=== PATIENT | female | born 1995 | race Two or more races ===

== ENCOUNTER 2021-03-08 05:44 | Inpatient (IN) | payer OTHER ==
[~2021-03-08] VITALS: Ht 160 cm; Wt 131.8 kg
[2021-03-08] MEDS ORDERED: METOCLOPRAMIDE 5 MG/ML, 2ML IV ONE (06:00)
[2021-03-08] MEDS ORDERED: LACTATED RINGERS 1,000 ML IVBOLUS ONE (06:00)
[2021-03-08] MEDS ORDERED: SODIUM CITRATE/CITRIC ACID 30 ML UDC PO ONE (06:00)
[2021-03-08] MEDS ORDERED: LACTATED RINGERS 1,000 ML IV SCH (06:00)
[2021-03-08] MEDS ORDERED: NEWBORN KIT ONE (06:05)
[2021-03-08] MEDS ORDERED: SODIUM CITRATE/CITRIC ACID 15 ML UDC ONE (06:06)
[2021-03-08] MEDS ORDERED: OXYTOCIN 30U/ 0.9% NaCL 500ML 500 ML ONE (06:06)
[2021-03-08 06:09] VITALS: BP 126/70
[2021-03-08] MEDS ORDERED: ASPI-963 PO (06:16)
[2021-03-08] MEDS ORDERED: PREN1TAB62 PO (06:16)
[2021-03-08] MEDS ORDERED: IRON1TAB60 PO (06:17)
[2021-03-08 06:23] LABS: BASOPHILS % (AUTO) 1 % (0-1); EOSINOPHILS % (AUTO) 1 % (1-7); LYMPHOCYTES % (AUTO) 18 % (22-44); MD NO; MEAN CORPUSCULAR HEMOGLOBIN 26.2 pg (27.0-34.8); MEAN CORPUSCULAR HGB CONC 32.7 g/dL (32.4-35.8); MEAN PLATELET VOLUME 9.7 fL (7.4-10.4); MONOCYTES % (AUTO) 7 % (2-9); NEUTROPHILS % (AUTO) 73 % (42-75); PLATELET COUNT 234 x10^3/uL (130-400); RED BLOOD COUNT 4.59 x10^6/uL (3.82-5.3); RED CELL DISTRIBUTION WIDTH 14.9 % (9.6-15.2)
[2021-03-08] MEDS ORDERED: FENTANYL PF 100 MCG/2ML ONE (07:07)
[2021-03-08 07:30] VITALS: BP 106/71
[2021-03-08] MEDS ORDERED: ACETAMINOPHEN 325 MG TABLET PO PRN ×2 (08:00→09:30)
[2021-03-08] MEDS: LACTATED RINGERS 1,000 ML IV SCH ×4 (08:00→18:00)
[2021-03-08] MEDS ORDERED: METHYLERGONOVINE 0.2 MG/ML IM PRN (08:00)
[2021-03-08] MEDS ORDERED: MORPHINE SULFATE 4 MG/ML, 1ML IVPush PRN (08:00)
[2021-03-08] MEDS ORDERED: SIMETHICONE 80 MG CHEW TAB PO PRN (08:00)
[2021-03-08] MEDS ORDERED: morphine SULFATE 10 MG/ML, 1ML IVPush PRN ×2 (08:00→09:30)
[2021-03-08] MEDS ORDERED: CALCIUM CARBONATE 500 MG TAB.CHEW PO PRN (08:00)
[2021-03-08] MEDS ORDERED: OXYcodone/APAP 5/325MG TABLET PO PRN (08:00)
[2021-03-08] MEDS ORDERED: MISOPROSTOL 200 MCG TABLET PR PRN (08:00)
[2021-03-08] MEDS ORDERED: ONDANSETRON 2MG/ML, 2ML IV PRN (08:00)
[2021-03-08] MEDS ORDERED: EPHEDRINE 50 MG/ML, 1ML ONE (08:01)
[2021-03-08] MEDS ORDERED: OXYTOCIN 10 UNITS/ML, 1ML ONE ×3 (08:04)
[2021-03-08] MEDS ORDERED: CEFAZOLIN 1,000 MG ONE ×3 (08:04)
[2021-03-08] MEDS ORDERED: KETOROLAC 30 MG/1 ML ONE (08:04)
[2021-03-08] MEDS: KETOROLAC 30 MG/1 ML IV SCH ×3 (08:30→20:51)
[2021-03-08] MEDS ORDERED: DIPHENHYDRAMINE 50 MG/ML, 1ML ONE (09:21)
[2021-03-08] MEDS ORDERED: EPHEDRINE 50 MG/ML, 1ML IVPush PRN (09:30)
[2021-03-08] MEDS ORDERED: OXYcodone 5 MG/5 ML ORAL.SOL UDC PO PRN (09:30)
[2021-03-08] MEDS ORDERED: DIPHENHYDRAMINE 50 MG/ML, 1ML IVPush PRN (09:30)
[2021-03-08] MEDS ORDERED: FENTANYL PF 100 MCG/2ML IV PRN (09:30)
[2021-03-08] MEDS ORDERED: LABETALOL 5MG/ML, 20ML IV PRN (09:30)
[2021-03-08] MEDS ORDERED: ONDANSETRON 2MG/ML, 2ML IVPush PRN (09:30)
[2021-03-08] MEDS: OXYTOCIN 30U/ 0.9% NaCL 500ML 500 ML IV SCH ×2 (10:03→18:00)
[2021-03-08 10:35] VITALS: BP 114/70
[2021-03-08] MEDS: OXYcodone IR 5MG TABLET PO PRN ×3 (12:25→20:52)
[2021-03-08 14:21] VITALS: BP 104/66
[2021-03-08 17:30] LABS: BASOPHILS % (AUTO) 0 % (0-1); EOSINOPHILS % (AUTO) 1 % (1-7); LYMPHOCYTES % (AUTO) 17 % (22-44); MEAN CORPUSCULAR HEMOGLOBIN 26.4 pg (27.0-34.8); MEAN CORPUSCULAR HGB CONC 32.6 g/dL (32.4-35.8); MEAN PLATELET VOLUME 9.6 fL (7.4-10.4); MONOCYTES % (AUTO) 5 % (2-9); NEUTROPHILS % (AUTO) 77 % (42-75); PLATELET COUNT 192 x10^3/uL (130-400); RED BLOOD COUNT 4.14 x10^6/uL (3.82-5.3); RED CELL DISTRIBUTION WIDTH 14.7 % (9.6-15.2)
[2021-03-08 17:33] LABS: MD NO
[2021-03-08 19:30] VITALS: BP 106/71
[2021-03-08] MEDS: DOCUSATE 100 MG CAPSULE PO PRN (20:51)
[2021-03-09 00:30] VITALS: BP 111/73
[2021-03-09] MEDS: OXYcodone IR 5MG TABLET PO PRN ×3 (00:54→20:06)
[2021-03-09] MEDS: KETOROLAC 30 MG/1 ML IV SCH (02:58)
[2021-03-09 04:00] VITALS: BP 109/69
[2021-03-09] MEDS: OXYTOCIN 30U/ 0.9% NaCL 500ML 500 ML IV SCH ×2 (04:00→14:00)
[2021-03-09] MEDS: LACTATED RINGERS 1,000 ML IV SCH ×5 (04:00→16:00)
[2021-03-09 07:50] VITALS: BP 112/75
[2021-03-09] MEDS: IBUPROFEN 600 MG TABLET PO PRN ×3 (08:06→23:07)
[2021-03-09] MEDS: PRENATAL VIT/IRON/FA 1 EACH TABLET PO SCH ×2 (08:06→09:00)
[2021-03-09] MEDS: DOCUSATE 100 MG CAPSULE PO PRN ×2 (08:06→20:05)
[2021-03-09 19:55] VITALS: BP 127/65
[2021-03-10] MEDS ORDERED: OXYC-302 PO (05:54)
[2021-03-10] MEDS: IBUPROFEN 600 MG TABLET PO PRN ×2 (06:11→13:33)
[2021-03-10] MEDS: OXYcodone IR 5MG TABLET PO PRN ×2 (06:12→13:36)
[2021-03-10] MEDS ORDERED: MEASLES,MUMPS&RUBELLA VACC/PF 0.5 ML SQ-VACC ONE (06:30)
[2021-03-10 07:10] VITALS: BP 115/74
[2021-03-10] MEDS: LACTATED RINGERS 1,000 ML IV SCH ×4 (08:00→10:00)
[2021-03-10] MEDS: PRENATAL VIT/IRON/FA 1 EACH TABLET PO SCH (09:00)
[2021-03-10] MEDS: OXYTOCIN 30U/ 0.9% NaCL 500ML 500 ML IV SCH ×2 (10:00)
[2021-03-10] MEDS: DOCUSATE 100 MG CAPSULE PO PRN (13:33)
[2021-03-10] MEDS ORDERED: IBUP-1222 PO (14:16)
== END 2021-03-10 15:30 | disposition home or self-care (01) | DRG 788 ==
LOC: LDIP 05:44 → 2NW 10:29
PROVIDERS: ADMIT Obstetrics & Gynecology; ATTEND Obstetrics & Gynecology
PROC: 10D00Z1 Extraction of Products of Conception, Low, Open Approach (ICD-10-PCS; principal; 2021-03-08)
PROC: 3E0234Z Introduction of Serum, Toxoid and Vaccine into Muscle, Percutaneous Approach (ICD-10-PCS; 2021-03-10)
DX: O69.81X0 Labor and delivery complicated by cord around neck, without compression, not applicable or unspecified (principal); O34.211 Maternal care for low transverse scar from previous cesarean delivery; E66.9 Obesity, unspecified; O99.214 Obesity complicating childbirth; Z20.822 Contact with and (suspected) exposure to COVID-19; Z3A.39 39 weeks gestation of pregnancy; Z37.0 Single live birth; Z82.49 Family history of ischemic heart disease and other diseases of the circulatory system; Z83.3 Family history of diabetes mellitus; Z23 Encounter for immunization
CPT/HCPCS: 36415; 85025; 86592; 86850; 86900; 87635; 90707; G0378; J0690; J1885; J3010; J1200; J2590; J2765; J7120